=== PATIENT | male | born 1975 | race Asian ===

== ENCOUNTER 2023-09-22 23:08 | Emergency (ER) | payer SELFPAY ==
[~2023-09-22] VITALS: Ht 170.2 cm; Wt 124.7 kg
[2023-09-22 23:13] VITALS: BP_SYST 188; PULSE 100; RESP 16; TEMP 96.7; O2SAT 95
[2023-09-23] MEDS: TRANEXAMIC ACID 1,000 MG/10 ML VIAL TP ONE (00:04)
[2023-09-23] MEDS: OXYMETAZOLINE HCL 0.05% NASAL SPRAY NS ONE (00:04)
[2023-09-23 01:12] VITALS: BP_SYST 142; PULSE 62; RESP 18; TEMP 98.7; O2SAT 99
== END 2023-09-23 01:16 | disposition home or self-care (01) ==
LOC: SED 23:08
DX: R04.0 Epistaxis (principal); R11.0 Nausea; R03.0 Elevated blood-pressure reading, without diagnosis of hypertension
CPT/HCPCS: 99284; 30901; J3490

== ENCOUNTER 2023-09-25 20:30 | Emergency (ER) | payer SELFPAY ==
[~2023-09-25] VITALS: Ht 170.2 cm; Wt 81.6 kg
[2023-09-25 20:53] VITALS: BP_SYST 192; PULSE 107; RESP 16; TEMP 98.2; O2SAT 98
[2023-09-25] MEDS: hydrALAZINE HCL 20 MG/ML VIAL IVP ONE (21:16)
[2023-09-25 21:41] VITALS: BP_SYST 137; PULSE 93; RESP 19; TEMP 98.1; O2SAT 95
== END 2023-09-25 21:41 | disposition home or self-care (01) ==
LOC: SED 20:30
DX: R04.0 Epistaxis (principal); I10 Essential (primary) hypertension
CPT/HCPCS: 99284; 96374; 30901; J0360